=== PATIENT | male | born 1965 | race Caucasian/White ===

== ENCOUNTER 2017-08-03 18:32 | Inpatient (IN) | payer MEDICAID ==
[2017-08-03] MEDS ORDERED: PROPOFOL/EMULSION 500 MG/50 ML BOTTLE IV ONE (18:41)
[2017-08-03] MEDS ORDERED: ETOMIDATE 40 MG/20 ML INJ IVP ONE (18:47)
[2017-08-03] MEDS ORDERED: SUCCINYLCHOLINE CHLORIDE 200 MG/10 ML VIAL IVP ONE (18:47)
[2017-08-03] MEDS ORDERED: PROPOFOL/EMULSION 50 ML IV ONE (18:47)
[2017-08-03 18:52] LABS: % IMMATURE GRANULYOCYTES 0.2 % (0.0-1.1); ABSOLUTE IMMATURE GRANULOCYTES 0.02 10^3/uL (0.00-0.10); ADD DIFF? NO; ADD MORPH? NO; ADD SCAN? NO; ATYPICAL LYMPHOCYTE FLAG 20 (0-99); FRAGMENT RBC FLAG 0 (0-99); HEMATOCRIT 47.9 % (40.0-51.0); HEMOGLOBIN 17.3 g/dL (13.7-17.5); LEFT SHIFT FLG 0 (0-99); LIPEMIA HEMOLYSIS FLAG 90 (0-99); MEAN CELL HEMOGLOBIN CONCENTR. 36.1 g/dL (32.4-36.7); MEAN CELL VOLUME 99.8 fL (81.5-99.8); MEAN PLATELET VOLUME 9.5 fL (8.7-11.7); PLATELET CLUMPS FLAG 0 (0-99); PLATELET COUNT 388 10^3/uL (150-400); RED CELL DISTRIBUTION WIDTH 12.5 % (11.5-15.2)
--- NOTE | 2017-08-03 18:53 | EDPHY ---
H & P Time Seen by Provider: 08/03/17 18:32 HPI/ROS: CHIEF COMPLAINT: Trauma activation HISTORY OF PRESENT ILLNESS: Patient was found on the ground bleeding from the head and arrives as a full trauma activation. According to EMS a hammer runner the bike path found him lying on the ground bleeding from the head and called 911. No further history is obtainable as there are no witnesses prior to the runner, according to EMS and the patient is nonverbal. Further review of systems and history unobtainable as the patient is nonverbal. PAST MEDICAL HISTORY: Unknown, nonverbal Social history: Unknown, nonverbal. General Appearance: Obtunded on arrival Eyes: Patient will resist me opening his eyes but he will not open them to verbal stimulus or painful stimulus. ENT, Mouth: No tongue laceration, right forehead and parietal hematoma and abrasion Respiratory: Normal respiratory effort, breath sounds equal, lungs are clear to auscultation. Cardiovascular: Regular rate and rhythm. Gastrointestinal: Abdomen is soft and non tender. Neurological: Nonverbal and obtunded. On arrival the patient is not moving any of his extremities. Skin: No laceration except for the abrasion on the head. Musculoskeletal: No extremity deformity Psychiatric: Unable, nonverbal Emergency Department course/MDM: On arrival patient required IV access and had left intraosseous tibial placed. At that time he became combative but still was nonverbal. He began to flex all of his extremities and try and sit up off the bed. Actively vomiting, can't protect airway, in a collar. Intubated for airway protection and for control of the patient to perform an adequate trauma assessment. Rolled off the backboard, no spinal deformity seen. Please see procedure note for intubation. Dr. Rojas trauma surgeon present on arrival. 1919: Examined in the trauma room, blood pressure 162/104, sedated on propofol. CT per [facility] possible left parietal petechial bleed, c-spine negative. 1927: subacute left 7th rib, no other injury per Helg[facility]. On propofol drip. Plan to admit to ICU to Trauma surgery. Constitutional: Initial Vital Signs Temperature (C) 36.1 C 08/03/17 18:32 Heart Rate 72 08/03/17 18:32 Respiratory Rate 28 H 08/03/17 18:32 Blood Pressure 156/90 H 08/03/17 18:32 O2 Sat (%) 100 08/03/17 18:32 O2 Delivery Mode Non-Rebreather Mask Allergies/Adverse Reactions: No Known Allergies Allergy (Unverified 08/03/17 19:26) Home Medications: Medication Instructions Recorded Unobtainable 08/03/17 Medical Decision Making Procedures: Indication for the procedure was airway protection. The patient was preoxygenated with 100% oxygen by face mask. The patient was sedated with etomidate and paralyzed with succiylcholine. The patient was orally endotracheally intubated under direct visualization with a 8 0 ETT. In-line stabilization was performed during the procedure. Tracheal intubation was confirmed with misting on the tube; breath sounds were auscultated equally bilaterally; appropriate color change with [place] [employer] CO2 detector, capnography waveform is appropriate, oxygen saturation after procedure is 98%. Chest CT pending. The procedure was performed by myself. Differential Diagnosis: Differential diagnosis considered for head injury including but not limited to concussion, skull fracture, intraparenchymal contusion, subarachnoid, subdural and epidural hematoma. Critical Care Time: Critical care time spent by me, Dr. Lemus, exclusively with the care of this patient was 30 minutes, exclusive of PA or CASTINGS DRAFTER time and exclusive of separate procedures. The organ system at risk was neurologic and I ordered multiple diagnostic studies including imaging labs, serial examinations, intravenous sedative medication, discussion with radiologist and trauma surgeon; to stabilize the patient and prevent worsening of the patient's condition. - Data Points Laboratory Results: Laboratory Results 08/03/17 18:44 08/03/17 18:44 08/03/17 08/03/17 08/03/17 18:44 18:44 18:44 WBC RBC Hgb POC Hgb Hct POC Hct MCV MCH MCHC RDW Plt Count MPV Neut % (Auto) Lymph % (Auto) [place] % (Auto) Eos % (Auto) Baso % (Auto) Nucleat RBC Rel Count Absolute Neuts (auto) Absolute Lymphs (auto) Absolute Monos (auto) Absolute Eos (auto) Absolute Basos (auto) Absolute Nucleated RBC Immature Gran % Immature Gran # PT INR APTT POC Sodium Sodium 142 mEq/L mEq/L (134-144) POC Potassium Potassium 3.6 mEq/L mEq/L (3.5-5.2) POC Chloride Chloride 102 mEq/L mEq/L (97-110) Carbon Dioxide 21 mEq/l L mEq/l (22-31) Anion Gap 19 mEq/L H mEq/L (8-16) POC BUN BUN 4 mg/dL L mg/dL (7-23) Creatinine 0.6 mg/dL L mg/dL (0.7-1.3) POC Creatinine Estimated GFR > 60 Glucose 157 mg/dL H mg/dL (70-100) POC Glucose Calcium 9.6 mg/dL mg/dL (8.5-10.4) Phenytoin Pending Ethyl Alcohol 96 mg/dL H mg/dL (0-10) Patient ABO/Rh Pending Antibody Screen Pending 08/03/17 08/03/17 08/03/17 18:44 18:44 18:38 WBC 11.76 10^3/uL H 10^3/uL (3.80-9.50) RBC 4.80 10^6/uL 10^6/uL (4.40-6.38) Hgb 17.3 g/dL g/dL (13.7-17.5) POC Hgb 16.3 gm/dL gm/dL (13.7-17.5) Hct 47.9 % % (40.0-51.0) POC Hct 48 % % (40-51) MCV 99.8 fL fL (81.5-99.8) MCH 36.0 pg H pg (27.9-34.1) MCHC 36.1 g/dL g/dL (32.4-36.7) RDW 12.5 % % (11.5-15.2) Plt Count 388 10^3/uL 10^3/uL (150-400) MPV 9.5 fL fL (8.7-11.7) Neut % (Auto) 71.2 % % (39.3-74.2) Lymph % (Auto) 18.0 % % (15.0-45.0) [place] % (Auto) 9.4 % % (4.5-13.0) Eos % (Auto) 0.7 % % (0.6-7.6) Baso % (Auto) 0.5 % % (0.3-1.7) Nucleat RBC Rel Count 0.0 % % (0.0-0.2) Absolute Neuts (auto) 8.38 10^3/uL H 10^3/uL (1.70-6.50) Absolute Lymphs (auto) 2.12 10^3/uL 10^3/uL (1.00-3.00) Absolute Monos (auto) 1.10 10^3/uL H 10^3/uL (0.30-0.80) Absolute Eos (auto) 0.08 10^3/uL 10^3/uL (0.03-0.40) Absolute Basos (auto) 0.06 10^3/uL 10^3/uL (0.02-0.10) Absolute Nucleated RBC 0.00 10^3/uL 10^3/uL (0-0.01) Immature Gran % 0.2 % % (0.0-1.1) Immature Gran # 0.02 10^3/uL 10^3/uL (0.00-0.10) PT 13.5 SEC SEC (12.0-15.0) INR 1.04 (0.83-1.16) APTT 28.6 SEC SEC (23.0-38.0) POC Sodium 142 mEq/L mEq/L (134-144) Sodium POC Potassium 3.1 mEq/L L mEq/L (3.3-5.0) Potassium POC Chloride 105 mEq/L mEq/L (97-110) Chloride Carbon Dioxide Anion Gap POC BUN < 3 mg/dL L mg/dL (7-23) BUN Creatinine POC Creatinine 0.9 mg/dL mg/dL (0.7-1.3) Estimated GFR Glucose POC Glucose 122 mg/dL H mg/dL (70-100) Calcium Phenytoin Ethyl Alcohol Patient ABO/Rh Antibody Screen Point of Care Test Results: 08/03/17 18:38 POC Sodium 142 POC Potassium 3.1 L POC Chloride 105 POC BUN < 3 L POC Creatinine 0.9 POC Glucose 122 H Departure - Departure Disposition: [facility] Acute Clinical Impression: Intracranial hemorrhage Acute head trauma Qualifiers: Encounter type: initial encounter Qualified Code(s): S09.90XA - Unspecified injury of head, initial encounter Condition: Critical
[2017-08-03 19:02] LABS: INR 1.04 (0.83-1.16); PROTIME(PATIENT) 13.5 SEC (12.0-15.0)
[2017-08-03 19:03] LABS: APTT 28.6 SEC (23.0-38.0)
[2017-08-03 19:05] LABS: ANION GAP 19 mEq/L (8-16); CALCIUM 9.6 mg/dL (8.5-10.4); CARBON DIOXIDE 21 mEq/l (22-31); CHLORIDE 102 mEq/L (97-110); CREATININE 0.6 mg/dL (0.7-1.3); ETHANOL SERUM 96 mg/dL (0-10); GLOMERULAR FILTRATION RATE > 60; GLUCOSE 157 mg/dL (70-100); POTASSIUM 3.6 mEq/L (3.5-5.2); SODIUM 142 mEq/L (134-144)
[2017-08-03] MEDS ORDERED: MIDAZOLAM 2 MG/2 ML VIAL ONE (19:23)
[2017-08-03] MEDS ORDERED: ONDANSETRON 4 MG/2 ML VIAL IVP PRN (19:28)
[2017-08-03] MEDS ORDERED: NALOXONE HCL 0.4 MG/ML INJ IVP PRN (19:28)
[2017-08-03] MEDS ORDERED: fentaNYL/NACL 100 ML IV SCH (19:30)
[2017-08-03] MEDS ORDERED: MIDAZOLAM 2 MG/2 ML VIAL IVP ONE (19:30)
[2017-08-03 19:43] LABS: BASE EXCESS -3.7 mEq/L (-2.5-2.5); BICARBONATE 22 mEq/L (22-26); MEASURED OXYGEN SATURATION 100 % (92-95); PCO2 44 mmHg (34-38); PO2 259 mmHg (65-75); TCO2 23 mEq/L (23-27)
[2017-08-03 19:44] LABS: O2 CONCENTRATIION 100 % (0-100); P/F RATIO 259 RATIO; PRESSURE SUPPORT 7; SIMV YES
--- NOTE | 2017-08-03 19:55 | GHP ---
[f rep st] HISTORY AND PHYSICAL Corrected report DATE OF ADMISSION: 08/03/2017 CHIEF COMPLAINT: Found down. Question seizure. HISTORY OF PRESENT ILLNESS: The patient is a 52-year-old, well-known to the hospital for alcohol admissions and alcohol withdrawal seizures. He was found down and unresponsive. GCS was 3. EMS attempted intubation and he began having emesis. They bagged him and brought him in. On arrival to the ED, he had no movement in his extremities to stimulation. He began spontaneously moving. Attention was made to securing IV access and his airway. An IO was drilled. He was given appropriate medications and intubated. He did have emesis in the ER that was projectile. PAST MEDICAL HISTORY: Alcohol dependence, seizure disorder, history of trauma. PAST SURGICAL HISTORY: Surgery for necrotizing fasciitis on his leg. ALLERGIES: No known drug allergies. HOME MEDICATIONS: Per chart review, he had been prescribed Dilantin and is noncompliant. SOCIAL HISTORY: He is an alcoholic. He is . FAMILY HISTORY: Cannot be obtained. REVIEW OF SYSTEMS: Cannot be obtained. PHYSICAL EXAMINATION: VITAL SIGNS: His temperature is 36.1. He is breathing on the vent. His pulse is in the 80s. His blood pressure is 160s/110s. HEENT : He has a contusion over his right temporal area. His pupils are round and reactive to light. No otorrhea and no rhinorrhea. Dental work. He has a lot emesis in his mouth. Nasal trumpet in place and then later ET tube placed. NECK: Cervical collar in place. LUNGS: Clear bilaterally. CARDIAC: Regular rate. No peripheral edema. ABDOMEN: Bowel sounds present. Soft, nontender, nondistended. I performed a FAST exam. I did not see any pericardial fluid. I did not see any fluid between the liver and the kidney. I did not see any fluid between the spleen and the kidney. His bladder was distended without any surrounding fluid. His abdomen was soft. : Normal male genitalia. EXTREMITIES: He did move all extremities prior to intubation. He has an IO in his right lower leg. No abrasions noted. BACK: No step-offs. No abrasions. SKIN: He has well-healed incisions on his left lower extremity. NEUROLOGIC: Initial GCS was 3 and then became 5 while we were doing procedures on him. TEST DATA: Results reviewed. I personally reviewed his CT scan of his head, C- spine, chest, abdomen, and pelvis. There was a possible intraparenchymal hemorrhage. His alcohol level was 96. IMPRESSION/PLAN: The patient is a 52-year-old who was found down. It is possible that he could have had a seizure. As he cannot protect his airway, he is intubated. He will be sedated with propofol. I spent greater than 90 minutes with the patient including managing his propofol and blood pressure and coordinating care. I will repeat his head CT scan in 6 hours. I have discussed the case with Dr. Juarez, and I do not believe that it is essential for Dr. Juarez to evaluate him at this time. I will recontact him if there are any changes in his CT scan overnight. I have also spoken with Dr. Rosas who will see the patient. If there are no additional injuries found, I am hoping that Medicine will be primary. Remain in a C-collar until cleared by Neurosurgery, n.p.o., YECENIA, and Mckeon. Due to his several bouts of emesis, I will place him on Zosyn for possible aspiration. Repeat head ct stable /[id number]/MODL Tati acc#, 08/04/17, sheri ANDERSON
[2017-08-03] MEDS: PROPOFOL/EMULSION 100 ML IV SCH (20:06)
[2017-08-03] MEDS: CHLORHEXIDINE GLUCONATE 15 ML UDL PO SCH (20:43)
[2017-08-03] MEDS: PIPERACILLIN/TAZO 3.375 GM/DEX 50 ML IV SCH (20:43)
[2017-08-03] MEDS: FAMOTIDINE 20 MG/NACL 50 ML IV SCH (20:43)
[2017-08-03] MEDS ORDERED: NS 1,000 ML IV ONE ×2 (21:09→21:10)
[2017-08-03] MEDS: NS 1,000 ML IV SCH (22:07)
[2017-08-03] MEDS: PHENYTOIN SODIUM 100 MG/2 ML VIAL IVP SCH (22:37)
[2017-08-03] MEDS: LORazepam 2 MG/ML INJ IVP PRN (23:40)
[2017-08-04] MEDS: THIAMINE HCL 500 MG in NS 100 ML IV SCH ×2 (00:16→09:26)
[2017-08-04] MEDS: LORazepam 2 MG/ML INJ IVP PRN ×3 (00:39→19:51)
[2017-08-04 01:10] LABS: COLOR YELLOW; LEUKOCYTE ESTERASE,URINE NEGATIVE (NEGATIVE); NITRITE,URINE NEGATIVE (NEGATIVE)
[2017-08-04 01:22] LABS: MUCUS TRACE /lpf (NONE-1+)
[2017-08-04 01:36] LABS: PHENCYCLIDINE URINE BCH < 6 ng/ml (NEGATIVE); PHENCYCLIDINE URINE BCH NEGATIVE (NEGATIVE)
[2017-08-04 01:49] LABS: TETRAHYDROCANNABINOL URINE < 5 ng/mL (NEGATIVE); TETRAHYDROCANNABINOL URINE NEGATIVE (NEGATIVE)
[2017-08-04] MEDS: PIPERACILLIN/TAZO 3.375 GM/DEX 50 ML IV SCH ×4 (01:55→19:50)
[2017-08-04] MEDS: PROPOFOL/EMULSION 100 ML IV SCH (04:22)
[2017-08-04 04:43] LABS: % IMMATURE GRANULYOCYTES 0.4 % (0.0-1.1); ABSOLUTE IMMATURE GRANULOCYTES 0.04 10^3/uL (0.00-0.10); ADD DIFF? NO; ADD MORPH? NO; ADD SCAN? NO; ATYPICAL LYMPHOCYTE FLAG 20 (0-99); FRAGMENT RBC FLAG 0 (0-99); HEMATOCRIT 36.5 % (40.0-51.0); HEMOGLOBIN 12.7 g/dL (13.7-17.5); LEFT SHIFT FLG 0 (0-99); LIPEMIA HEMOLYSIS FLAG 90 (0-99); MEAN CELL HEMOGLOBIN 35.9 pg (27.9-34.1); MEAN CELL HEMOGLOBIN CONCENTR. 34.8 g/dL (32.4-36.7); MEAN CELL VOLUME 103.1 fL (81.5-99.8); MEAN PLATELET VOLUME 9.5 fL (8.7-11.7); PLATELET CLUMPS FLAG 0 (0-99); PLATELET COUNT 218 10^3/uL (150-400); RED BLOOD CELL COUNT 3.54 10^6/uL (4.40-6.38); RED CELL DISTRIBUTION WIDTH 12.8 % (11.5-15.2)
[2017-08-04 05:01] LABS: ANION GAP 7 mEq/L (8-16); CALCIUM 6.3 mg/dL (8.5-10.4); CARBON DIOXIDE 19 mEq/l (22-31); CHLORIDE 114 mEq/L (97-110); CREATININE 0.5 mg/dL (0.7-1.3); GLOMERULAR FILTRATION RATE > 60; GLUCOSE 71 mg/dL (70-100); MAGNESIUM 1.1 mg/dL (1.6-2.3); SODIUM 140 mEq/L (134-144)
[2017-08-04 05:03] LABS: BASE EXCESS 0.4 mEq/L (-2.5-2.5); BICARBONATE 24 mEq/L (22-26); MEASURED OXYGEN SATURATION 97 % (92-95); PCO2 39 mmHg (34-38); PO2 100 mmHg (65-75); TCO2 25 mEq/L (23-27)
[2017-08-04 05:05] LABS: END TIDAL CO2 36; PATIENT RATE 22; PRESSURE SUPPORT 7; SIMV YES
[2017-08-04 05:17] LABS: POTASSIUM 2.5 mEq/L (3.5-5.2)
[2017-08-04] MEDS ORDERED: PROTOCOL MAGNESIUM 1 DOSE IV PRN (05:34)
[2017-08-04] MEDS ORDERED: PROTOCOL POTASSIUM 1 DOSE MISC PRN (05:34)
[2017-08-04] MEDS: POTASSIUM Cl (KCl) 100 ML IV SCH ×8 (06:09→22:52)
[2017-08-04] MEDS: PHENYTOIN SODIUM 100 MG/2 ML VIAL IVP SCH ×2 (06:10→15:02)
[2017-08-04] MEDS ORDERED: ETOMIDATE 40 MG/20 ML INJ ONE (06:25)
[2017-08-04] MEDS ORDERED: SUCCINYLCHOLINE CHLORIDE*ANESTHESIA ONLY*200 MG/10 ML SYR IVP ONE (06:25)
--- NOTE | 2017-08-04 08:45 | TRAUMAPN ---
Assessment/Plan: 52 Y M hx EtOH found down unknown length of time. Tiny IPH. Subacute rib fx. Intubated, sedated. Done to protect airway while combative and vomiting. Possible extubation today if less sedated and more cooperative. C spine, still in hard collar. Too sedated to clear. IPH. Stable on repeat CT. Dr. Storm to see later today and discuss on ICU rounds. sedated, intubated. OG in place. no otorrhea, mmm lungs clear rrr abd soft, no reaction to deep palpation excellent pedal pulses Objective: Vital Signs Temp Pulse Resp BP Pulse Ox 37.4 C 102 H 22 H 122/81 H 100 08/04/17 08:00 08/04/17 08:04 08/04/17 08:00 08/04/17 08:00 08/04/17 08:04 Microbiology 08/04/17 01:14 - Final Sputum, Induced/Suctioned Laboratory Results 08/04/17 04:30 08/04/17 04:30 08/03/17 08/04/17 08/05/17 05:59 05:59 05:59 Intake Total 5331.4 Output Total 2100 Balance 3231.4 PT 13.5 SEC (12.0-15.0) 08/03/17 18:44 INR 1.04 (0.83-1.16) 08/03/17 18:44
[2017-08-04] MEDS ORDERED: LORazepam 2 MG/ML INJ IVP SCH (09:00)
--- NOTE | 2017-08-04 09:02 | GCON ---
[f rep st] CONSULTATION MEDICINE CONSULTATION REFERRING PHYSICIAN: Nhi Rojas MD This is a medicine consultation at the request of Dr. Nhi Rojas for medical evaluation and manageme nt of seizure disorder and alcohol abuse. CHIEF COMPLAINT: Found down. HISTORY: This is a 52-year-old man, with a longstanding history of alcohol abuse, prior intracranial hemorrhage, and resultant seizure disorder, who presents after being found down on the ground, bleed ing from his head. At the time of my evaluation, patient is intubated and sedated, and therefore the entire history is obtained per chart review and ER report. Apparently, patient was found on the bik e path, noted to be unconscious and bleeding from the head. There were no witnesses to what might manrique ve occurred prior to being found down. There is [facility] was noted to be [facility]. Please note that the patient's charts are not cu rrently joined, but he previously has been at this hospital on multiple occasions with the name Same date of is currently listed. PAST MEDICAL HISTORY: 1. Includes alcohol abuse, with alcohol withdrawal and chhcflc-zitukyctkq-uwxmtjt seizures. 2. Intracranial hemorrhage and resultant seizure disorder, thought to be secondary to that. 3. Multiple hospitalizations for traumas. 4. Necrotizing fasciitis. 5. Alcoholic hepatitis. FAMILY HISTORY: This is reviewed and is noncontributory. There is not much available per chart revi ew. SOCIAL HISTORY: Per chart review, patient noted to be homeless. He has previously admitted to drink ing up to a 12-pack of beer per day and also has note of other drug abuse, including meth. Unknown w hat the patient may currently be using. Unknown if he is a smoker, but he previously was. REVIEW OF SYSTEMS: Unobtainable secondary to patient's mental status. HOME MEDICATIONS: This is unobtainable, but on chart review, he was previously meant to be on Dilant in. ALLERGIES: No known drug allergies. PHYSICAL EXAM: VITAL SIGNS: BP 93/52, heart rate 94, respiratory rate 22, O2 sat is 98% on 60% FiO2 on the ventilator, temperature is 36.6. GENERAL APPEARANCE: This is a disheveled male. He is intubated and sedated. HEENT: He has a large laceration on his head. Eyes are anicteric. Or opharynx ET tube is in place. PULMONARY: Coarse breath sounds. Lungs do seem to be clear, with liam ateral air movement. CARDIOVASCULAR: Regular rate and rhythm. ABDOMEN: Soft. Bowel sounds are pr esent. EXTREMITIES: No clubbing, cyanosis, or edema. SKIN: There is an abrasion on the head. Oth erwise, no obvious bruising or lacerations. NEURO/PSYCH: Again, patient is intubated and sedated. Apparently, even on arrival, prior to intubation, he was nonverbal and obtunded. He does intermitten tly move his extremities, and this seems to be equal as far as I can tell. CLINICAL DATA: Labs reviewed. Significant for white blood cell count of 11.76, hematocrit of 47.9, coags are within normal limits. Blood gas notable for pCO2 of 44, pH of 7.3. Chemistry remarkable f or an anion gap of 19 and creatinine is 0.6. Tox screen shows negative for phenytoin and BAL of 96. IMAGING: Head CT personally reviewed and interpreted. It shows a tiny petechial hemorrhage in the l eft parietal encephalomalacia bed. No fractures. Chest CT, showing bibasilar atelectasis. There is a subacute 7th rib fracture. Endotracheal tube in place. Abdominal CT is negative. Cervical spine CT shows no acute fracture. Lumbar spine CT shows no acute fracture. ASSESSMENT AND PLAN: This is a 52-year-old alcohol abuser presenting status post trauma with acute e ncephalopathy and acute hypoxic respiratory failure. 1. Acute encephalopathy. Uncertain what led to his initial presentation. Query seizure, given that he was found bleeding from the head on the ground. Certainly could be related to alcohol withdrawal , although he does have likely azp-ddzkywg-jlyoyod seizures as well, with his history of intracranial hemorrhage. He is being monitored in the intensive care unit. We will ask Neurology to consult and resume intravenous Dilantin for the time being. Drug screen has been ordered. 2. Acute hypoxic respiratory failure. This is largely secondary to patient's inability to protect h is airway secondary to his mental status changes. He was noted to be actively vomiting and aspiratin g. He is now intubated and maintaining O2 saturations with 60% FiO2. We will get a repeat chest x-r ay in the morning. 3. Aspiration and suspected aspiration pneumonia. Will obtain blood and sputum cultures. He has be en started on Zosyn, which seems appropriate. We will continue to monitor. 4. Intracranial hemorrhage. The patient does have what appears to be a tiny intracranial hemorrhage . A repeat head CT has been ordered for tomorrow. Neurosurgery has been consulted. 5. Alcohol abuse and history of severe alcohol withdrawal. He is currently sedated with propofol an d as-needed Ativan available. We will also schedule low-dose Ativan throughout the day to help avoid breakthrough seizure. We will start multivitamin thiamine folate once he is able to take by mouth. Thiamine will be started now intravenously. I will check liver function tests. He does have a hist ory of alcoholic hepatitis as well. 6. Seizure disorder. This is as per above. His Dilantin level was undetectable. He does have both alcohol-related seizures and seizures related to his prior intracranial hemorrhage. Again, he has b een started on Dilantin intravenously, and a neurology consult has been placed. 7. Anion gap metabolic acidosis. We will check a lactate level as well as the urinalysis for ketone s. This is likely alcoholic ketoacidosis in the setting of patient being a longstanding alcoholic an d looking like he has not been taking good care of himself recently. 8. Leukocytosis, again in the setting of aspiration and recent trauma. Cultures pending. Antibioti cs started. DISPOSITION: Inpatient status. Patient is critically ill. Currently in ICU. Patient is new to my care. Old records reviewed, summarized as per HPI and past medical history. Ca re plan reviewed with Dr. Rojas, including plans for treatment of aspiration and seizure. /[id number]/MODL
[2017-08-04] MEDS: FOLIC ACID 1 MG TAB PO SCH (09:18)
[2017-08-04] MEDS: NS 1,000 ML IV SCH ×2 (09:25→17:58)
[2017-08-04] MEDS: CHLORHEXIDINE GLUCONATE 15 ML UDL PO SCH (09:26)
[2017-08-04] MEDS: FAMOTIDINE 20 MG/NACL 50 ML IV SCH (09:26)
--- NOTE | 2017-08-04 09:57 | GCON ---
[f rep st] CONSULTATION DATE OF CONSULTATION: 08/04/2017 REASON FOR CONSULTATION: Head trauma status post patient being found down. HISTORY OF PRESENT ILLNESS: The patient is a 52-year-old gentleman, who has been known to [facility] emergency room being seen for head injuries in the past as well as alcohol intoxication. Per the ER report, he was found down on the ground bleeding from his scalp, and was brought in via EMS. He is currently intubated and no family is at bedside, so further history is unobtainable. The joseph ent this morning is intubated. REVIEW OF SYSTEMS: Unobtainable. PAST MEDICAL HISTORY: Has been seen in the [facility] emergency room for prior head injury an d does have a history of seizure disorder per the record and takes Dilantin at home. Though he has h ad reports of not being compliant with Dilantin in the past. PAST SURGICAL HISTORY: Unknown. PAST SOCIAL HISTORY: Unknown. FAMILY HISTORY: Unknown. ALLERGIES: No known drug allergies. HOME MEDICATIONS: Per report from the nurse, the patient does take Dilantin. Other medications are unknown. PHYSICAL EXAM: VITAL SIGNS: BP is 98/81, heart rate is 94. He is 98% on the ventilator. Temp is 3 7.6. The patient is in no acute distress with sedation turned off. He does grimace to pain and moves all 4 extremities spontaneously. He does follow commands briskly on the right. On the left he is slower to follow commands and does not give a full produce runner on the left but gives a full produce runner on the right. EY ES: PERRLA and at 2 mm equal bilaterally. SKIN: The patient does have a rash on the front of his c hest, as well as a scalp regions. DIAGNOSTIC REVIEW: 1. Head CT upon coming into the emergency room which demonstrated a questionable a tiny intraparench ymal hemorrhage. Repeat CT scan was done last night approximately 5 hours later which was negative f or any change in this questionable tiny bleeding. 2. Cervical spine CT: The patient's cervical spine CT is negative for any acute fracture. DISCUSSION AND DECISION-MAKING: The patient is a 52-year-old gentleman, who came into the emergency room last night. He was seen both by Dr. Juarez and myself this morning, who has a questionable evid ence of a tiny intraparenchymal hemorrhage that has not changed since admission. He also has a negat braulio CT scan. At this point in time, there does not appear to be any acute neurosurgical intervention . We would recommend getting the patient off sedation and extubated so that a full exam can be done. Would recommend continued q.2 hour neuro checks. Would restart the patient's Dilantin dose once this is known, due to his prior seizure diagnosis. e nurses have not witnessed any seizures while he has been in the ICU since admission. If the patient has any change in neurologic or motor exam, please notify Neurosurgery. /[id number]/MODL
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
[2017-08-04] MEDS ORDERED: MAGNESIUM SULF 2 GM/WATER 50 ML IV ONE (10:18)
[2017-08-04] MEDS ORDERED: PROTOCOL CALCIUM 1 DOSE IV PRN (10:25)
[2017-08-04] MEDS ORDERED: PROTOCOL K PHOSPHATE 1 DOSE IV PRN (10:25)
[2017-08-04 13:27] LABS: IONIZED CALCIUM 1.07 MMOL/L (1.12-1.30)
[2017-08-04 14:04] LABS: POTASSIUM 3.7 mEq/L (3.5-5.2)
[2017-08-04 14:39] LABS: MAGNESIUM 2.1 mg/dL (1.6-2.3)
[2017-08-04] MEDS ORDERED: CALCIUM GLUCONATE 50 ML IV ONE (14:56)
--- NOTE | 2017-08-04 17:09 | HOSPPROG ---
Hospitalist Progress Note Assessment/Plan: * Acute encephalopathy - post-ictal vs. Etoh vs. CHI * Acute respiratory failure s/p extubation * Small intra-parenchymal hemorrhage -per neurosurgery * Seizure disorder -takes Keppra/Vimpat -patient denies non-compliance * Possible aspiration pneumonia -IV Zosyn -consider DC abx since no significant infiltrate developing * TBI Subjective: Waking up post extubation. Adamently denies seizure med non- compliance Objective: Vital Signs Temp Pulse Resp BP Pulse Ox 37.9 C 100 16 143/87 H 100 08/04/17 16:00 08/04/17 16:00 08/04/17 16:00 08/04/17 16:00 08/04/17 16:00 Microbiology 08/04/17 01:14 - Final Sputum, Induced/Suctioned Laboratory Results 08/04/17 04:30 08/04/17 13:20 08/03/17 08/04/17 08/05/17 05:59 05:59 05:59 Intake Total 5331.4 Output Total 2100 Balance 3231.4 PT 13.5 SEC (12.0-15.0) 08/03/17 18:44 INR 1.04 (0.83-1.16) 08/03/17 18:44 d/w Dr. liyah guevara regarding plan of care CXR - atelectasis - Physical Exam Constitutional: no apparent distress, appears nourished, not in pain Cardiovascular: regular rate and rhythym, no murmur, rub, or gallop Respiratory: no respiratory distress, no rales or rhonchi, clear to auscultation Gastrointestinal: normoactive bowel sounds, soft, non-tender abdomen, no palpable masses Skin: no rashes or abrasions, no fluctuance, no induration Neurologic: AAOx3, sensation intact bilaterally Psychiatric: interacting appropriately, not anxious, not encephalopathic, thought process linear ICD10 Worksheet Patient Problems: Problems Problem Status Onset Acute head trauma Acute Intracranial hemorrhage Acute
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
[2017-08-04] MEDS: LACOSAMIDE 50 MG TAB PO SCH (19:50)
[2017-08-04] MEDS: levETIRAcetam 500 MG TAB PO SCH (19:51)
[2017-08-04] MEDS ORDERED: FAMOTIDINE 20 MG TAB PO SCH (21:00)
[2017-08-04 21:13] LABS: POTASSIUM 3.4 mEq/L (3.5-5.2)
[2017-08-05] MEDS: LORazepam 2 MG/ML INJ IVP PRN (01:11)
[2017-08-05] MEDS: PIPERACILLIN/TAZO 3.375 GM/DEX 50 ML IV SCH ×2 (01:11→07:45)
[2017-08-05 04:20] LABS: IONIZED CALCIUM 1.15 MMOL/L (1.12-1.30)
[2017-08-05 04:25] LABS: % IMMATURE GRANULYOCYTES 0.6 % (0.0-1.1); ABSOLUTE IMMATURE GRANULOCYTES 0.05 10^3/uL (0.00-0.10); ADD DIFF? NO; ADD MORPH? NO; ADD SCAN? NO; ATYPICAL LYMPHOCYTE FLAG 10 (0-99); FRAGMENT RBC FLAG 0 (0-99); HEMOGLOBIN 14.1 g/dL (13.7-17.5); LEFT SHIFT FLG 10 (0-99); LIPEMIA HEMOLYSIS FLAG 90 (0-99); MEAN CELL HEMOGLOBIN 36.5 pg (27.9-34.1); MEAN CELL HEMOGLOBIN CONCENTR. 36.2 g/dL (32.4-36.7); MEAN PLATELET VOLUME 9.8 fL (8.7-11.7); PLATELET CLUMPS FLAG 0 (0-99); PLATELET COUNT 220 10^3/uL (150-400); RED BLOOD CELL COUNT 3.86 10^6/uL (4.40-6.38); RED CELL DISTRIBUTION WIDTH 12.3 % (11.5-15.2)
[2017-08-05 04:32] LABS: ANION GAP 6 mEq/L (8-16); CARBON DIOXIDE 26 mEq/l (22-31); CHLORIDE 103 mEq/L (97-110); CREATININE 0.7 mg/dL (0.7-1.3); GLOMERULAR FILTRATION RATE > 60; GLUCOSE 91 mg/dL (70-100); MAGNESIUM 1.8 mg/dL (1.6-2.3); POTASSIUM 3.9 mEq/L (3.5-5.2); SODIUM 135 mEq/L (134-144)
--- NOTE | 2017-08-05 04:56 | SOAPPROG ---
SOAP Progress Note Assessment/Plan: Assessment: DOING MUCH BETTER LAST NIGHT AND C-SPINE CLEARED NO CERVICAL PAIN OR TENDERNESS WITH FULL ROM NECK CT NEG Plan:DC COLLAR 08/05/17 04:54 Objective: Vital Signs Temp Pulse Resp BP Pulse Ox 37.1 C 97 17 133/83 H 99 08/05/17 04:00 08/05/17 04:00 08/05/17 04:00 08/05/17 04:00 08/05/17 04:00 Microbiology 08/04/17 01:14 - Final Sputum, Induced/Suctioned Laboratory Results 08/05/17 04:09 08/05/17 04:09 08/03/17 08/04/17 08/05/17 05:59 05:59 05:59 Intake Total 5331.4 5153 Output Total 2100 3300 Balance 3231.4 1853 PT 13.5 SEC (12.0-15.0) 08/03/17 18:44 INR 1.04 (0.83-1.16) 08/03/17 18:44 ICD10 Worksheet Patient Problems: Problems Problem Status Onset Acute head trauma Acute Intracranial hemorrhage Acute
[2017-08-05] MEDS ORDERED: MAGNESIUM SULF 1 GM/DEXTROSE 100 ML IV ONE (07:06)
[2017-08-05] MEDS: POTASSIUM Cl (KCl) 100 ML IV SCH ×2 (07:41→10:14)
[2017-08-05] MEDS: LACOSAMIDE 50 MG TAB PO SCH ×2 (08:54→21:05)
[2017-08-05] MEDS: levETIRAcetam 500 MG TAB PO SCH ×2 (08:55→21:05)
[2017-08-05] MEDS: THIAMINE HCL 500 MG in NS 100 ML IV SCH (08:55)
[2017-08-05] MEDS: FOLIC ACID 1 MG TAB PO SCH (08:55)
[2017-08-05] MEDS ORDERED: POTASSIUM CL 10 MEQ TAB PO ONE (09:45)
--- NOTE | 2017-08-05 10:17 | WOCRNPDOC ---
WOCRN Advanced Assessment Note - Skin Integrity Problem, Advanced Assess Bilateral Foot Dressing Type: Open to Air Margaret Wound Tissue: Xerotic Skin Integrity Problem Comment: Possible fungal involvement along with xerosis. Healed blisters noted on right metatarsal head. Will treat with antifungal barrier cream and recheck next week. Report to Adolfo PATEL's.
[2017-08-05] MEDS ORDERED: chlordiazePOXIDE 25 MG CAP PO PRN (11:05)
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
--- NOTE | 2017-08-05 14:49 | HOSPPROG ---
Hospitalist Progress Note Assessment/Plan: * Acute encephalopathy - likely due to Etoh * Acute respiratory failure s/p extubation * Small intra-parenchymal hemorrhage -per neurosurgery - stable * Seizure disorder -continue Keppra/Vimpat -patient denies non-compliance * Aspiration PNA - Klebsiella sputum -change to PO Augmentin * TBI - recurrent head trauma * Etoh withdrawal -wean off benzos Subjective: Admits to heavy drinking prior to admission, suspects he was intoxicated and fell. Still adament regarding compliance with seizure meds. Expresses some motivation to quit Etoh Objective: Vital Signs Temp Pulse Resp BP Pulse Ox 36.3 C 94 15 116/74 96 08/05/17 07:48 08/05/17 10:00 08/05/17 10:00 08/05/17 10:00 08/05/17 10:00 Microbiology 08/04/17 01:14 - Final Sputum, Induced/Suctioned Laboratory Results 08/05/17 04:09 08/05/17 04:09 08/04/17 08/05/17 08/06/17 05:59 05:59 05:59 Intake Total 5331.4 5153 365 Output Total 2100 3300 2700 Balance 3231.4 1853 -2335 PT 13.5 SEC (12.0-15.0) 08/03/17 18:44 INR 1.04 (0.83-1.16) 08/03/17 18:44 d/w Dr. Zimmerman and Alfredo Hayes - transfer to floor, transfer to medicine CXR - some infiltrate - Physical Exam Constitutional: no apparent distress, appears nourished, not in pain Cardiovascular: regular rate and rhythym, no murmur, rub, or gallop Respiratory: no respiratory distress, no rales or rhonchi, clear to auscultation Gastrointestinal: normoactive bowel sounds, soft, non-tender abdomen, no palpable masses Skin: no rashes or abrasions, no fluctuance, no induration Neurologic: AAOx3, sensation intact bilaterally Psychiatric: interacting appropriately, not anxious, not encephalopathic, thought process linear ICD10 Worksheet Patient Problems: Problems Problem Status Onset Acute head trauma Acute Intracranial hemorrhage Acute
[2017-08-05] MEDS ORDERED: ACETAMINOPHEN 325 MG TAB PO PRN (17:50)
[2017-08-05] MEDS ORDERED: CALCIUM CARBONATE 500 MG CHEWABLE TAB PO PRN (17:50)
--- NOTE | 2017-08-05 18:55 | PDINTPN ---
News Gathering Technician Progress Note Assessment/Plan: Assessment: Altered mental status: Resolving Closed head injury: Minimal petechial bleeding. Not advancing. Clinically much improved. Chronic and acute alcohol abuse, without significant signs or symptoms of DTs/ alcohol withdrawal at this time. CIWA quite low today. On p.r.n. Librium. Aspiration, possible aspiration bronchopneumonia. Klebsiella growing from sputum culture 08/04. Will stop Zosyn, start Augmentin today. He can complete a 7 to ten-day course of this as an outpatient. Seizure disorder: Likely secondary to previous head trauma. On Keppra and Vimpat. Doing well. No recurrent seizures. Neurology following. Metabolic: No issues identified today. Mag, phos, potassium all within normal limits. DVT prophylaxis: SCDs plus ambulation. GI prophylaxis: None indicated, eating. Plan: Continue care in the hospital today, but can transition to medical- surgical status. Continue CIWA. Increase ambulation with PT/OT. Speech therapy seeing regarding cognitive issues. Possible discharge in the next 1-2 days. Subjective: Denies a nor shortness of breath. Up in chair. Oriented, responsive Objective: Vital Signs Temp Pulse Resp BP Pulse Ox 37.4 C 100 16 120/75 92 08/05/17 16:00 08/05/17 16:00 08/05/17 16:00 08/05/17 16:00 08/05/17 16:00 Microbiology 08/04/17 01:14 - Final Sputum, Induced/Suctioned Laboratory Results 08/05/17 04:09 08/05/17 04:09 08/04/17 08/05/17 08/06/17 05:59 05:59 05:59 Intake Total 5331.4 5153 2865 Output Total 2100 3300 3650 Balance 3231.4 1853 -785 PT 13.5 SEC (12.0-15.0) 08/03/17 18:44 INR 1.04 (0.83-1.16) 08/03/17 18:44 Laboratory Tests 08/05/17 08/05/17 04:09 04:09 Calcium 8.0 L D Ionized Calcium 1.15 Phosphorus 3.4 Magnesium 1.8 Sputum culture: Klebsiella. CXR: Possible small retrocardiac infiltrate versus atelectasis. If not a great inspiration. Physical Exam - Physical Exam General Appearance: alert, no apparent distress, other (Oriented x3) EENT: PERRL/EOMI, other (Nasal cannula at 1 L) Neck: normal inspection Respiratory: lungs clear (Anteriorly), decreased breath sounds (At bases), rales (Bibasilar rales, relatively minimal, nonspecific. No evidence of consolidation), No rhonchi (But some central congestion with cough) Cardiac/Chest: regular rate, rhythm Abdomen: normal bowel sounds, non-tender, soft Male Genitalia: other (Mckeon catheter removed, good urine output.) Skin: normal color, warm/dry Extremities: swelling (Hands remains swollen), No pedal edema Neuro/Psych: no motor/sensory deficits (Moves all extremities equally), No cognition abnormalities (Still a little lethargic, slow responses but oriented x3, knows president, lives at [facility], etc) ICD10 Worksheet Patient Problems: Problems Problem Status Onset Acute head trauma Acute Intracranial hemorrhage Acute
[2017-08-05] MEDS: AMOXICILLIN/CLAVULANATE POT 875/125 MG TAB PO SCH (21:05)
[2017-08-06 05:03] LABS: IONIZED CALCIUM 1.11 MMOL/L (1.12-1.30)
[2017-08-06 05:23] LABS: ANION GAP 10 mEq/L (8-16); CALCIUM 8.8 mg/dL (8.5-10.4); CARBON DIOXIDE 24 mEq/l (22-31); CHLORIDE 103 mEq/L (97-110); CREATININE 0.7 mg/dL (0.7-1.3); GLOMERULAR FILTRATION RATE > 60; GLUCOSE 108 mg/dL (70-100); MAGNESIUM 1.9 mg/dL (1.6-2.3); POTASSIUM 3.6 mEq/L (3.5-5.2); SODIUM 137 mEq/L (134-144)
[2017-08-06] MEDS ORDERED: PROTOCOL POTASSIUM 1 DOSE MISC PRN (06:20)
[2017-08-06 08:06] VITALS: BP 124/83; PULSE 102; RESP 16; TEMP 97.8; O2SAT 94
[2017-08-06] MEDS ORDERED: POTASSIUM CL 10 MEQ TAB PO ONE (08:06)
[2017-08-06] MEDS ORDERED: THIAMINE HCL 100 MG TAB PO SCH (09:00)
[2017-08-06] MEDS: AMOXICILLIN/CLAVULANATE POT 875/125 MG TAB PO SCH (09:59)
[2017-08-06] MEDS: LACOSAMIDE 50 MG TAB PO SCH (09:59)
[2017-08-06] MEDS: levETIRAcetam 500 MG TAB PO SCH (10:00)
[2017-08-06] MEDS: FOLIC ACID 1 MG TAB PO SCH (10:00)
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
== END 2017-08-06 15:00 | disposition home or self-care (01) | DRG 70 ==
LOC: EDBD 18:32 → F2N 20:03
PROVIDERS: ADMIT Surgery; ATTEND Surgery
DX: G93.49 Other encephalopathy (principal); J96.01 Acute respiratory failure with hypoxia; S06.360A Traumatic hemorrhage of cerebrum, unspecified, without loss of consciousness, initial encounter; J69.0 Pneumonitis due to inhalation of food and vomit; F10.239 Alcohol dependence with withdrawal, unspecified; G40.909 Epilepsy, unspecified, not intractable, without status epilepticus; F10.229 Alcohol dependence with intoxication, unspecified; B96.1 Klebsiella pneumoniae [K. pneumoniae] as the cause of diseases classified elsewhere; Z87.820 Personal history of traumatic brain injury; T42.6X6A Underdosing of other antiepileptic and sedative-hypnotic drugs, initial encounter; R40.2431 Glasgow coma scale score 3-8, in the field [EMT or ambulance]; Y90.4 Blood alcohol level of 80-99 mg/100 ml
CPT/HCPCS: 80307; 82947-QW; 92523-GN; 92610-GN; 97112-GP; 97116-GP; 97162-GP; 97166-GO; 97532-GO; 97535-GO; G0480; J0330; J0610; J2060; J2250; J2543; J2704; J3010; J3411; J3475; L0172